=== PATIENT | female | born 1960 | race Caucasian/White ===

== ENCOUNTER → 2017-11-09 | Outpatient (CLI) | payer BC ==
--- NOTE | 2017-11-09 09:12 | BD ---
EXAMINATION TYPE: MG DEXA axial skeleton. DATE OF EXAM: 11/09/2017 COMPARISON: NONE CLINICAL HISTORY: Height: 112.2 Weight: 62.5 FRAX RISK QUESTIONS: Alcohol (3 or more units per day): no Family History (Parent hip fracture): no Glucocorticoids (More than 3mos): no (Ex: prednisone, prednisolone, methylprednisolone, dexamethasone, and hydrocortisone). History of Fracture in Adulthood: no Secondary Osteoporosis: 1. Type 1 Diabetes: no 2. Hyperthyroidism: no 3. Menopause before 45: no 4. Malnutrition: no 5. Chronic liver disease: no Rheumatoid Arthritis: no Current Tobacco Use: no RISK FACTORS HISTORY OF: Hip Fracture (Right/Left): When: Spine Fracture: When: History of Wrist Fracture: When: Surgery to Spine/Hip(right/left)/Wrist (right/left): no Family History of Osteoporosis: no Active: yes Diet low in dairy products/other sources of calcium: yes Postmenopausal woman: hysterectomy age53 Lost more than 2 inches in height since high school: no Frequent falls: no Poor Health: no Hyperparathyroidism: no Adrenal Insufficiency: no MEDICATIONS: none Additional History: EXAM MEASUREMENTS: Bone mineral densitometry was performed using the [employer] System. Bone mineral density as measured about the Lumbar spine is: ----- L1-L4(G/cm2): 0.910 T Score Values are as follows: ----- L2: -2.3 ----- L3: -2.2 ----- L4: -2.7 ----- L1-L4: -2.2 Bone mineral density baseline Bone mineral density about the R hip (g/cm2): 0.897 Bone mineral density about the L hip (g/cm2): 0.872 T Score values are as follows: -----R Neck: -1.0 -----L Neck: -1.2 -----R Total: -0.8 -----L Total: -1.1 Bone mineral density has baseline IMPRESSION: Osteopenia (T Score between -2.5 and -1 as noted by T score values overall within left hip and low ba ck. There is slightly increased risk of fracture and the patient may be considered for treatment. Re- Screen 2-5 years. NOTE: T-SCORE=SD OF THE YOUNG ADULT MEAN.
--- NOTE | 2017-11-10 09:46 | MM ---
Reason for exam: screening (asymptomatic). Last mammogram was performed 5 years and 9 months ago. History: Patient is postmenopausal. Family history of breast cancer in mother, breast cancer in paternal grandmother, and breast cancer in maternal grandmother. Benign excisional biopsy of the right breast, 1992. Physical Findings: A clinical breast exam by your physician is recommended on an annual basis and results should be correlated with mammographic findings. MG 3D Screening Mammo W/Cad Bilateral CC and MLO view(s) were taken. Prior study comparison: October 18, 2016, mammogram, performed at [facility]. October 27, 2015, mammogram, performed at [facility]. February 09, 2012, CAD bilateral diagnostic mammogram. April 09, 2010, bilateral digital screening mammogram. The breast tissue is heterogeneously dense. This may lower the sensitivity of mammography. There are stable right upper outer quadrant calcifications compared to multiple priors. No suspicious abnormality. No significant changes when compared with prior studies. ASSESSMENT: Benign, BI-RAD 2 RECOMMENDATION: Routine screening mammogram of both breasts in 1 year.
== END | disposition home or self-care (01) ==
LOC: RADMAMWWP 06:58
PROVIDERS: ATTEND Family Medicine
DX: M85.88 Other specified disorders of bone density and structure, other site (principal); M85.852 Other specified disorders of bone density and structure, left thigh; Z12.31 Encounter for screening mammogram for malignant neoplasm of breast
CPT/HCPCS: 77063; 77067; 77080

== ENCOUNTER → 2018-10-09 | Outpatient (CLI) | payer BC ==
--- NOTE | 2018-10-09 16:13 | CT ---
EXAMINATION TYPE: CT abdomen pelvis w con DATE OF EXAM: 10/09/2018 COMPARISON: None INDICATION: Abdominal pain, right side DLP: 348 mGycm, Automated exposure control for dose reduction was used. CONTRAST: 100 mL of Isovue 300. Study performed with Oral Contrast TECHNIQUE: Axial images were obtained from above the diaphragm to the pubic rami in the axial plane a t 5 mm thick sections. Reconstructed images are reviewed on the computer in the coronal plane. FINDINGS: Limited CT sections are obtained the lung bases. The lung bases are clear. CT ABDOMEN: Liver: Normal Spleen: Few scattered calcified granuloma may be within the spleen. Pancreas: Normal Adrenal glands: The adrenal glands are normal. Gallbladder: Normal Kidneys: No masses are evident. No hydronephrosis is present. No cysts are present. Delayed images were obtained through the kidneys, which remain unremarkable. Note is made of duplication of the rig ht renal collecting system. Dual ureters are identified to the pelvic inlet. This extends out of the [id number] and the distal evaluation of duplication cannot be performed at this time. Aorta: Normal Inferior vena cava: Normal. CT PELVIS: Loops of bowel within the abdomen and pelvis are normal. There are loops of bowel which are incom pletely distended or lack oral contrast limiting their evaluation. Fecal debris is within the colon. Appendix: Normal as visualized. Urinary bladder: Normal. Genitourinary structures: Uterus and adnexa are unremarkable. Osseous structures: No suspicious lytic or sclerotic lesions. IMPRESSIONS: 1. Duplication of the right renal collecting system. Dual ureters are identified to at least the pel nkechi inlet. 2. No suspicious acute changes to account for right abdomen pain.
== END | disposition home or self-care (01) ==
LOC: RADCTMAIN 10:38
PROVIDERS: ATTEND Family Medicine
DX: Q62.5 Duplication of ureter (principal); R10.9 Unspecified abdominal pain
CPT/HCPCS: 74177; Q9967

== ENCOUNTER → 2018-11-15 | Outpatient (CLI) | payer BC ==
--- NOTE | 2018-11-29 14:17 | MM ---
Reason for exam: screening (asymptomatic). Last mammogram was performed 1 year ago. History: Patient is postmenopausal. Family history of breast cancer in mother, breast cancer in paternal grandmother, and breast cancer in maternal grandmother. Benign excisional biopsy of the right breast, 1992. MG 3D Screening Mammo W/Cad Bilateral CC and MLO view(s) were taken. Prior study comparison: November 09, 2017, bilateral MG 3d screening mammo w/cad. October 18, 2016, mammogram, performed at [facility]. The breast tissue is heterogeneously dense. This may lower the sensitivity of mammography. No significant changes when compared with prior studies. ASSESSMENT: Benign, BI-RAD 2 RECOMMENDATION: Routine screening mammogram of both breasts in 1 year.
== END ==
LOC: RADMAMWWP 09:14
PROVIDERS: ATTEND Family Medicine
DX: Z12.31 Encounter for screening mammogram for malignant neoplasm of breast (principal)
CPT/HCPCS: 77063; 77067

== ENCOUNTER 2019-05-29 14:50 | Emergency (ER) | payer BC ==
[2019-05-29 15:01] VITALS: TEMP 97.1
[2019-05-29] MEDS ORDERED: SODIUM CHLORIDE 0.9% 1,000 ML IV STA (15:06)
[2019-05-29] MEDS ORDERED: MORPHINE SULFATE 4 MG/ML SYRINGE IVP STA (15:22)
[2019-05-29] MEDS ORDERED: ONDANSETRON 4 MG/2 ML VIAL IVP STA (15:22)
--- NOTE | 2019-05-29 15:31 | ED ---
Abdominal Pain HPI - General Chief Complaint: Abdominal Pain Stated Complaint: rt flank pain Poss /stone Time Seen by Provider: 05/29/19 15:06 Source: patient, RN notes reviewed Mode of arrival: wheelchair Limitations: no limitations - History of Present Illness Initial Comments: This a 59-year-old female presents emergency Department chief complaint of severe right-sided flank pain. Patient is a sudden onset of pain. Patient states that it's unbearable nothing makes the pain feel better or worse she missed the continuous nausea vomiting. Patient was seen at PCPs office today urinalysis does show hematuria. Patient states that this elevated for possible kidney stone. Patient states that she has no history of stones. She denies any diarrhea, constipation, fever, chills, chest pain or shortness of breath. Patient was given Toradol IV PCP in which she states has helped somewhat she has continuation of pain. - Related Data Home Medications Medication Instructions Recorded Confirmed Cranberry Fruit Concentrate [Azo 250 mg PO DAILY PRN 05/29/19 05/29/19 Cranberry] L.acidoph,Paracasei, B.lactis 1 cap PO HS 05/29/19 05/29/19 [Probiotic] Previous Rx's Medication Instructions Recorded Hydrocodone/Acetaminophen [[place] 1 tab PO Q6HR PRN #12 tab 05/29/19 5-325] Ketorolac [Toradol] 10 mg PO Q8HR #15 tab 05/29/19 Ondansetron Odt [Zofran Odt] 4 mg PO Q8HR PRN #10 tab 05/29/19 Tamsulosin [Flomax] 0.4 mg PO DAILY #7 cap 05/29/19 Allergies Allergy/AdvReac Type Severity Reaction Status Date / Time ciprofloxacin [From Cipro] Allergy Unknown Verified 05/29/19 15:25 CALAMARI Allergy Unknown Uncoded 05/29/19 15:01 Review of Systems ROS Statement: Those systems with pertinent positive or pertinent negative responses have been documented in the HPI. ROS Other: All systems not noted in ROS Statement are negative. Past Medical History Past Medical History: No Reported History History of Any Multi-Drug Resistant Organisms: None Reported Past Surgical History: No Surgical Hx Reported Past Psychological History: No Psychological Hx Reported Smoking Status: Never smoker Past Alcohol Use History: None Reported Past Drug Use History: None Reported General Exam Limitations: no limitations General appearance: alert, in no apparent distress Head exam: Present: atraumatic, normocephalic, normal inspection Respiratory exam: Present: normal lung sounds bilaterally. Absent: respiratory distress, wheezes, rales, rhonchi, stridor Cardiovascular Exam: Present: regular rate, normal rhythm, normal heart sounds. Absent: systolic murmur, diastolic murmur, rubs, gallop, clicks GI/Abdominal exam: Present: soft, normal bowel sounds. Absent: distended, tenderness (No change in patient's reported pain with palpation), guarding, rebound, rigid Back exam: Absent: CVA tenderness (R), CVA tenderness (L) Skin exam: Present: warm, dry, intact, normal color. Absent: rash Course Vital Signs 05/29/19 14:56 Temperature 97.1 F L Pulse Rate 46 L Respiratory 18 Rate Blood Pressure 152/87 O2 Sat by Pulse 100 Oximetry Medical Decision Making - Medical Decision Making 59-year-old female presents emergency from for right flank pain. Patient had CT which shows evidence of 4 mm UVJ stone. Patient symptoms are improving. Patient had lab work, urinalysis which shows evidence of hematuria otherwise unremarkable. - Lab Data Result diagrams: 05/29/19 15:26 05/29/19 15:26 Lab Results 05/29/19 05/29/19 05/29/19 Range/Units 15:26 15:26 15:26 WBC 8.9 (3.8-10.6) k/uL RBC 5.05 (3.80-5.40) m/uL Hgb 15.2 (11.4-16.0) gm/dL Hct 45.8 (34.0-46.0) % MCV 90.8 (80.0-100.0) fL MCH 30.1 (25.0-35.0) pg MCHC 33.1 (31.0-37.0) g/dL RDW 13.0 (11.5-15.5) % Plt Count 193 (150-450) k/uL Neutrophils % 73 % Lymphocytes % 20 % Monocytes % 4 % Eosinophils % 1 % Basophils % 1 % Neutrophils # 6.5 (1.3-7.7) k/uL Lymphocytes # 1.8 (1.0-4.8) k/uL Monocytes # 0.4 (0-1.0) k/uL Eosinophils # 0.1 (0-0.7) k/uL Basophils # 0.1 (0-0.2) k/uL Sodium 140 (137-145) mmol/L Potassium 4.5 (3.5-5.1) mmol/L Chloride 103 (98-107) mmol/L Carbon Dioxide 28 (22-30) mmol/L Anion Gap 9 mmol/L BUN 29 H (7-17) mg/dL Creatinine 0.86 (0.52-1.04) mg/dL Est GFR (CKD-EPI)AfAm 87 (>60 ml/min/1.73 sqM) Est GFR (CKD-EPI)NonAf 76 (>60 ml/min/1.73 sqM) Glucose 120 H (74-99) mg/dL Calcium 9.4 (8.4-10.2) mg/dL Total Bilirubin 0.7 (0.2-1.3) mg/dL AST 37 H (14-36) U/L ALT 20 (9-52) U/L Alkaline Phosphatase 72 (38-126) U/L Total Protein 7.2 (6.3-8.2) g/dL Albumin 4.5 (3.5-5.0) g/dL Amylase 63 (30-110) U/L Lipase 259 (23-300) U/L Urine Color Light Yellow Urine Appearance Clear (Clear) Urine pH 7.5 (5.0-8.0) Ur Specific [place] 1.013 (1.001-1.035) Urine Protein Negative (Negative) Urine Glucose (UA) Negative (Negative) Urine Ketones Negative (Negative) Urine Blood Small H (Negative) Urine Nitrite Negative (Negative) Urine Bilirubin Negative (Negative) Urine Urobilinogen <2.0 (<2.0) mg/dL Ur Leukocyte Esterase Negative (Negative) Urine RBC 24 H (0-5) /hpf Urine WBC 2 (0-5) /hpf Ur Squamous Epith Cells 1 (0-4) /hpf Urine Mucus Rare H (None) /hpf Disposition Clinical Impression: Ureteral calculus Disposition: HOME SELF-CARE Condition: Stable Instructions (If sedation given, give patient instructions): Kidney Stones (ED) Additional Instructions: Please return to the Emergency Department if symptoms worsen or any other concerns. Prescriptions: Tamsulosin [Flomax] 0.4 mg PO DAILY #7 cap Hydrocodone/Acetaminophen [[place] 5-325] 1 tab PO Q6HR PRN #12 tab PRN Reason: Pain Ketorolac [Toradol] 10 mg PO Q8HR #15 tab Ondansetron Odt [Zofran Odt] 4 mg PO Q8HR PRN #10 tab PRN Reason: Nausea Is patient prescribed a controlled substance at d/c from ED?: Yes When asked, does pt state using other controlled substances?: No If prescribed controlled substance>3 days was MAPS reviewed?: Prescribed <3 Days If opioid is for acute pain is fill amount 7 days or less?: Yes If Rx opioid, was Start Talking consent form obtained?: Yes Referrals: Zeinab Griffin MD [Primary Care Provider] - 1-2 days Roosevelt Eisenberg MD [STAFF PHYSICIAN] - 1-2 days Time of Disposition: 16:09
[2019-05-29 15:36] LABS: Basophils # (A) 0.1 k/uL (0-0.2); Basophils % (A) 1 %; Eosinophils # (A) 0.1 k/uL (0-0.7); Eosinophils % (A) 1 %; HCT 45.8 % (34.0-46.0); HGB 15.2 gm/dL (11.4-16.0); Lymphocytes # (A) 1.8 k/uL (1.0-4.8); Lymphocytes % (A) 20 %; MCH 30.1 pg (25.0-35.0); MCHC 33.1 g/dL (31.0-37.0); MCV 90.8 fL (80.0-100.0); Mean Platelet Volume 7.1; Monocytes # (A) 0.4 k/uL (0-1.0); Monocytes % (A) 4 %; Neutrophils # (A) 6.5 k/uL (1.3-7.7); Neutrophils % (A) 73 %; Platelet Count 193 k/uL (150-450); RBC 5.05 m/uL (3.80-5.40); WBC 8.9 k/uL (3.8-10.6)
[2019-05-29 15:38] LABS: Appearance,Urine Clear (Clear); Bilirubin,Urine Negative (Negative); Blood,Urine Small (Negative); Color,Urine Light Yellow; Glucose,Urine (UA) Negative (Negative); Ketones,Urine Negative (Negative); Leukocyte Esterase,Urine Negative (Negative); Mucus,Urine Rare /hpf; Nitrite,Urine Negative (Negative); PH, Urine 7.5 (5.0-8.0); Protein,Urine Negative (Negative); RBC,Urine 24 /hpf (0-5); Specific Gravity,Urine 1.013 (1.001-1.035); Squamous Epithelial Cell,Urine 1 /hpf (0-4); Urobilinogen,Urine <2.0 mg/dL (<2.0); WBC,Urine 2 /hpf (0-5)
[2019-05-29 15:47] LABS: Albumin 4.5 g/dL (3.5-5.0); Calcium 9.4 mg/dL (8.4-10.2); Potassium 4.5 mmol/L (3.5-5.1); Total Bilirubin 0.7 mg/dL (0.2-1.3); Total Protein 7.2 g/dL (6.3-8.2)
--- NOTE | 2019-05-29 15:57 | CT ---
EXAMINATION TYPE: CT abdomen pelvis wo con DATE OF EXAM: 05/29/2019 COMPARISON: 10/09/2018 HISTORY: 59-year-old female Right flank pain, hematuria CT DLP: 284.2 mGycm. Automated exposure control for dose reduction was used. TECHNIQUE: Contiguous axial scanning of the abdomen and pelvis without IV contrast. Coronal and sagit bri reconstructions performed. FINDINGS: Heart normal size without pericardial effusion. Some mild dependent atelectasis posterior lung bases. No pleural effusion. Noncontrast appearance of the liver, gallbladder, adrenal glands, left kidney with extrarenal pelvis, and pancreas show no gross abnormality. Multiple calcified granulomas in the spleen. There is no dilated small bowel, free fluid, or free air . There is mild to moderate right-sided hydronephrosis and mild hydroureter with a 4 mm calculus at the right UVJ. We note that the patient's 10/09/2018 exam showing a duplex right renal collecting system. It is uncl ear where the 2 ureters join but both the upper and lower pole collecting system is dilated suggestin g that the obstruction is occurring at the point of a single ureter. Few scattered prominent fluid-filled small bowel loops measuring up to 2.6 cm particularly in the lef t lower quadrant can be seen with enteritis. However, this is of questionable clinical significance i n the absence of pain here. Bladder nondistended. Uterus is visualized. Unable to delineate the ovaries from adjacent nonopacifie d bowel loops. No abnormal fluid collection in the pelvis. Bones: Mild degenerative changes at the hips. No osseous destructive process. IMPRESSION: 1. Mild to moderate right-sided hydronephrosis secondary to a 4 mm obstructing right UVJ calculus. 2. Note that the patient's 10/09/2018 exam demonstrated a duplex right renal collecting system. Dila tation of both upper and lower pole moieties suggests that the 2 ureters have come together distally. 3. A few prominent fluid-filled small bowel loops in the left lower quadrant may be transient or cou ld represent enteritis. Clinically correlate.
[2019-05-29 16:55] VITALS: BP 131/80; PULSE 61; RESP 16
== END 2019-05-29 16:55 | disposition home or self-care (01) ==
LOC: EC 14:50
DX: N13.2 Hydronephrosis with renal and ureteral calculous obstruction (principal); Z88.1 Allergy status to other antibiotic agents; Z91.013 Allergy to seafood
CPT/HCPCS: 36415; 74176; 80053; 81001; 82150; 83690; 85025; 96361; 96374; 96375; 99284

== ENCOUNTER → 2019-11-18 | Outpatient (CLI) | payer BC ==
--- NOTE | 2019-11-18 10:57 | BD ---
EXAMINATION TYPE: Axial Bone Density DATE OF EXAM: 11/18/2019 COMPARISON: NONE CLINICAL HISTORY: Height: 64 Weight: 111.7 FRAX RISK QUESTIONS: Alcohol (3 or more units per day): no Family History (Parent hip fracture): no Glucocorticoids (More than 3mos): no (Ex: prednisone, prednisolone, methylprednisolone, dexamethasone, and hydrocortisone). History of Fracture in Adulthood: no Secondary Osteoporosis: 1. Type 1 Diabetes: no 2. Hyperthyroidism: no 3. Menopause before 45: no 4. Malnutrition: no 5. Chronic liver disease: no Rheumatoid Arthritis: no Current Tobacco Use: no RISK FACTORS HISTORY OF: Family History of Osteoporosis: no Active: yes Diet low in dairy products/other sources of calcium: no Postmenopausal woman: age 53 MEDICATIONS: Additional History: EXAM MEASUREMENTS: Bone mineral densitometry was performed using the [employer]. Bone mineral density as measured about the Lumbar spine is: ----- L1-L4(G/cm2): 0.924 T Score Values are as follows: ----- L2: -2.3 ----- L3: -2.0 ----- L4: -2.5 ----- L1-L4: -2.1 Bone mineral density has: increased 1.9 % since study of: 11.09.2017 Bone mineral density about the R hip (g/cm2): 0.880 Bone mineral density about the L hip (g/cm2): 0.830 T Score values are as follows: -----R Neck: -1.1 -----L Neck: -1.5 -----R Total: -1.0 -----L Total: -1.3 Bone mineral density has: decreased -2.3 % since study of: 11.09.2017 IMPRESSION: Osteopenia about the lumbar spine and left femur. NOTE: T-SCORE=SD OF THE YOUNG ADULT MEAN.
--- NOTE | 2019-11-19 08:51 | MM ---
Reason for exam: screening (asymptomatic). Last mammogram was performed 1 year ago. History: Patient is postmenopausal. Family history of breast cancer in mother, breast cancer in paternal grandmother, and breast cancer in maternal grandmother. Benign excisional biopsy of the right breast, 1992. Physical Findings: A clinical breast exam by your physician is recommended on an annual basis and results should be correlated with mammographic findings. MG 3D Screening Mammo W/Cad Bilateral CC and MLO view(s) were taken. Prior study comparison: November 15, 2018, bilateral MG 3d screening mammo w/cad. November 09, 2017, bilateral MG 3d screening mammo w/cad. The breast tissue is heterogeneously dense. This may lower the sensitivity of mammography. There are benign appearing round vascular calcifications bilaterally. There is no discrete abnormality. ASSESSMENT: Benign, BI-RAD 2 RECOMMENDATION: Routine screening mammogram of both breasts in 1 year.
== END | disposition home or self-care (01) ==
LOC: RADMAMWWP 08:26
PROVIDERS: ATTEND Obstetrics & Gynecology
DX: Z12.31 Encounter for screening mammogram for malignant neoplasm of breast (principal); Z13.820 Encounter for screening for osteoporosis; M85.852 Other specified disorders of bone density and structure, left thigh; M85.88 Other specified disorders of bone density and structure, other site
CPT/HCPCS: 77063; 77067; 77080

== ENCOUNTER → 2020-12-01 | Outpatient (CLI) | payer BC ==
--- NOTE | 2020-12-02 10:40 | MM ---
Reason for exam: screening (asymptomatic). Last mammogram was performed 1 year ago. History: Patient is postmenopausal. Family history of breast cancer in mother, breast cancer in paternal grandmother, and breast cancer in maternal grandmother. Benign excisional biopsy of the right breast, 1992. Took hormonal contraceptives for 1 month. Taking estrogen for 1 year. Taking progesterone for 1 year. Physical Findings: A clinical breast exam by your physician is recommended on an annual basis and results should be correlated with mammographic findings. MG 3D Screening Mammo W/Cad Bilateral CC and MLO view(s) were taken. Prior study comparison: November 18, 2019, bilateral MG 3d screening mammo w/cad. November 15, 2018, bilateral MG 3d screening mammo w/cad. The breast tissue is heterogeneously dense. This may lower the sensitivity of mammography. Stable benign calcifications right breast. There is no discrete abnormality. ASSESSMENT: Benign, BI-RAD 2 RECOMMENDATION: Routine screening mammogram of both breasts in 1 year.
== END | disposition home or self-care (01) ==
LOC: RADMAMWWP 07:42
PROVIDERS: ATTEND Obstetrics & Gynecology
DX: Z12.31 Encounter for screening mammogram for malignant neoplasm of breast (principal); Z80.3 Family history of malignant neoplasm of breast
CPT/HCPCS: 77063; 77067

== ENCOUNTER → 2022-02-17 | Outpatient (CLI) | payer BC ==
--- NOTE | 2022-02-18 12:41 | MM ---
Reason for exam: screening (asymptomatic). Last mammogram was performed 1 year and 3 months ago. History: Patient is postmenopausal. Family history of breast cancer in mother, breast cancer in paternal grandmother, and breast cancer in maternal grandmother. Benign excisional biopsy of the right breast, 1992. Took hormonal contraceptives for 1 month. Taking estrogen for 1 year. Taking progesterone for 1 year. Physical Findings: A clinical breast exam by your physician is recommended on an annual basis and results should be correlated with mammographic findings. MG 3D Screening Mammo W/Cad Bilateral CC and MLO view(s) were taken. Prior study comparison: December 01, 2020, bilateral MG 3d screening mammo w/cad. November 18, 2019, bilateral MG 3d screening mammo w/cad. The breast tissue is heterogeneously dense. This may lower the sensitivity of mammography. No significant changes when compared with prior studies. ASSESSMENT: Benign, BI-RAD 2 RECOMMENDATION: Routine screening mammogram of both breasts in 1 year.
== END | disposition home or self-care (01) ==
LOC: RADMAMWWP 08:06
PROVIDERS: ATTEND Family Medicine
DX: Z12.31 Encounter for screening mammogram for malignant neoplasm of breast (principal); Z78.0 Asymptomatic menopausal state; Z80.3 Family history of malignant neoplasm of breast
CPT/HCPCS: 77063; 77067

== ENCOUNTER → 2023-02-20 | Outpatient (CLI) | payer BC ==
--- NOTE | 2023-02-20 11:40 | BD ---
EXAMINATION TYPE: Axial Bone Density DATE OF EXAM: 02/20/2023 CLINICAL HISTORY: 63 years old Female. ICD-10 CODE: N95.1 menopausal state, M89.9 disorder of bone Comparison: Prior DEXA bone scan November 18, 2019 Height: 62.5 Weight: 112.3 FRAX RISK QUESTIONS: Alcohol (3 or more units per day): no Family History (Parent hip fracture): no Glucocorticoids (More than 3mos): no). History of Fracture in Adulthood: no Secondary Osteoporosis: 1. Type 1 Diabetes: no 2. Hyperthyroidism: no 3. Menopause before 45: no 4. Malnutrition: no 5. Chronic liver disease: no Rheumatoid Arthritis: no Current Tobacco Use: no RISK FACTORS HISTORY OF: Hip Fracture (Right/Left): no Spine Fracture: no History of Wrist Fracture: no Surgery to Spine/Hip(right/left)/Wrist (right/left): no Family History of Osteoporosis: no Active: yes Diet low in dairy products/other sources of calcium: no Postmenopausal woman: yes Take estrogen and/or progesterone medications: Estrogen, Progesterone, [employer] Thyroid How long: past 3 years Lost more than 2 inches in height since high school: no Frequent falls: no Poor Health: no Hyperparathyroidism: no Adrenal Insufficiency: no MEDICATIONS: Prednisone or other steroids: no Thyroid Medications: [employer] Thyroid How Long: past 3 years Osteoporosis Medications: no Additional Medications: Multi Vit., Tri K, Vit D, Biotin Additional History: EXAM MEASUREMENTS: Bone mineral densitometry was performed using the [employer] System. Bone mineral density as measured about the Lumbar spine is: ----- L1-L4(G/cm2): 0.972 T Score Values are as follows: ----- L1: -1.4 ----- L2: -1.9 ----- L3: -1.4 ----- L4: -2.2 ----- L1-L4: -1.7 Z Score Values are as follows: ----- L1: 0.3 ----- L2: -0.2 ----- L3: 0.3 ----- L4: -0.5 ----- L1-L4: 0.0 Bone mineral density has: increased 5.2 % since study of: 11/18/2019 Bone mineral density about the R hip (g/cm2): 0.898 Bone mineral density about the L hip (g/cm2): 0.860 T Score values are as follows: -----R Neck: -1.0 -----L Neck: -1.3 -----R Total: -0.9 -----L Total: -1.2 Z Score values are as follows: -----R Neck: 0.6 -----L Neck: 0.3 -----R Total: 0.4 -----L Total: 0.1 Bone mineral density has: increases 1.6 % since study of: 11/18/2019 FRAX%s: The graph provided illustrates a 6..8% chance for a major osteoporotic fx and a 0.6% chance f or the hips probability for fx in 10 years time. IMPRESSION: Osteopenia (T Score between -2.5 and -1) remains present. There remains slightly increased risk of fracture and the patient may be considered for treatment. Re-Screen 2-5 years. NOTE: T-SCORE=SD OF THE YOUNG ADULT MEAN.
--- NOTE | 2023-02-21 07:30 | MM ---
Reason for Exam: Screening (asymptomatic). Last screening mammogram was performed 12 month(s) ago. Patient History: Menarche at age 16. First Full-Term at age 30. Postmenopausal. Patient has history of breast feeding. Currently using Estrogen, for 1 year. Currently using Progesterone, for 1 year. Hormonal Contraceptives for 1 month. 1992, Benign Excisional Biopsy on the right side. Paternal grandmother had breast cancer. Maternal grandmother had breast cancer. Mother had breast cancer. Risk Values: [place] 5 year model risk: 3.1%. NCI Lifetime model risk: 14.5%. Prior Study Comparison: 11/18/2019 Bilateral Screening Mammogram, [facility]. 12/01/2020 Bilateral Screening Mammogram, [facility]. 02/17/2022 Bilateral Screening Mammogram, [facility]. Tissue Density: The breast tissue is heterogeneously dense. This may lower the sensitivity of mammography. Findings: Analyzed By CAD. There is no suspicious group of microcalcifications or new suspicious mass in either breast. Overall Assessment: Negative, BI-RAD 1 Management: Screening Mammogram of both breasts in 1 year. A clinical breast exam by your physician is recommended on an annual basis and results should be correlated with mammographic findings. Electronically signed and approved by: Hai Coffman M.D. Radiologis
== END | disposition home or self-care (01) ==
LOC: RADMAMWWP 08:12
PROVIDERS: ATTEND Family Medicine
DX: Z12.31 Encounter for screening mammogram for malignant neoplasm of breast (principal); M85.89 Other specified disorders of bone density and structure, multiple sites; N95.1 Menopausal and female climacteric states; Z80.3 Family history of malignant neoplasm of breast
CPT/HCPCS: 77063; 77067; 77080

== ENCOUNTER → 2024-02-05 | Outpatient (CLI) | payer BC ==
--- NOTE | 2024-02-05 08:45 | USB ---
Reason for Exam: Clinical finding. Indicated Problems: Lump or thickening of the left side. Patient History: Menarche at age 16. First Full-Term at age 30. Postmenopausal. Patient has history of breast feeding. Currently using Estrogen, for 1 year. Currently using Progesterone, for 1 year. Hormonal Contraceptives for 1 month. 1993, Benign Excisional Biopsy on the right side. Paternal grandmother had breast cancer. Maternal grandmother had breast cancer. Mother had breast cancer. Risk Values: Lakeshia 5 year model risk: 3.2%. NCI Lifetime model risk: 14.1%. Technique: Method: Whole Breast Handheld. Doppler: Color. Patient Position: Supine. Prior Study Comparison: 02/09/2012 Left Diagnostic Ultrasound, [facility]. 12/01/2020 Bilateral Screening Mammogram, [facility]. 02/17/2022 Bilateral Screening Mammogram, [facility]. 02/20/2023 Bilateral MG 3D screening mammo w/cad, [facility]. Findings: The whole breast of the left breast, the axilla of the left breast and the retroareolar of the left breast were scanned. No solid masses are identified. There are scattered cysts noted throughout the left breast measuring subcentimeter in size. Mildly prominent ducts are seen within the retroareolar region. Manage clinically. Overall Assessment: Benign, BI-RAD 2 Management: Screening Mammogram of both breasts in 1 year. A clinical breast exam by your physician is recommended on an annual basis and results should be correlated with mammographic findings. This exam should not preclude additional follow-up of suspicious palpable abnormalities. Results were given to the patient verbally at the time of exam. Electronically signed and approved by: Hai Coffman M.D. Radiologis
--- NOTE | 2024-02-05 09:43 | MM ---
Reason for Exam: Clinical finding. Last screening mammogram was performed 12 month(s) ago. Patient History: Menarche at age 16. First Full-Term at age 30. Postmenopausal. Patient has history of breast feeding. Currently using Estrogen, for 1 year. Currently using Progesterone, for 1 year. Hormonal Contraceptives for 1 month. 1992, Benign Excisional Biopsy on the right side. Paternal grandmother had breast cancer. Maternal grandmother had breast cancer. Mother had breast cancer. Risk Values: Lakeshia 5 year model risk: 3.2%. NCI Lifetime model risk: 14.1%. Prior Study Comparison: 12/01/2020 Bilateral Screening Mammogram, [facility]. 02/17/2022 Bilateral Screening Mammogram, [facility]. 02/20/2023 Bilateral MG 3D screening mammo w/cad, [facility]. Tissue Density: The breasts are extremely dense, which lowers the sensitivity of mammography. Findings: No mass or distortion seen. No suspicious calcifications. Manage clinically. Overall Assessment: Incomplete: need additional imaging evaluation, BI-RAD 0 Management: Diagnostic Breast Ultrasound of the left breast. . Results were given to the patient verbally at the time of exam. Patient should continue monthly self-breast exams. A clinical breast exam by your physician is recommended on an annual basis. This exam should not preclude additional follow-up of suspicious palpable abnormalities. Note on Lakeshia scores and lifetime risk: 1. A Lakeshia score greater than 3% is considered moderate risk. If this is the case, consider specialist referral to assess eligibility for a risk reducing agent. 2. If overall lifetime risk for the development of breast cancer is 20% or higher, the patient may qualify for future screening with alternating mammogram and breast MRI. Electronically signed and approved by: Hai Coffman M.D. Radiologis
== END | disposition home or self-care (01) ==
LOC: RADMAMWWP 07:28
PROVIDERS: ATTEND Family Medicine
DX: N60.12 Diffuse cystic mastopathy of left breast (principal); R92.343 Mammographic extreme density, bilateral breasts; Z80.3 Family history of malignant neoplasm of breast; Z78.0 Asymptomatic menopausal state
CPT/HCPCS: 77062; 77066

== ENCOUNTER → 2025-02-21 | Outpatient (CLI) | payer BC ==
--- NOTE | 2025-02-21 07:34 | MM ---
Reason for Exam: Screening (asymptomatic). Last screening mammogram was performed 12 month(s) ago. Patient History: Menarche at age 16. First Full-Term at age 30. Postmenopausal. Patient has history of breast feeding. Currently using Estrogen, for 1 year. Currently using Progesterone, for 1 year. Hormonal Contraceptives for 1 month. 1992, Benign Excisional Biopsy on the right side. Paternal grandmother had breast cancer. Maternal grandmother had breast cancer. Mother had breast cancer. Risk Values: Lakeshia 5 year model risk: 3.3%. NCI Lifetime model risk: 13.7%. Prior Study Comparison: 02/17/2022 Bilateral Screening Mammogram, [facility]. 02/20/2023 Bilateral MG 3D screening mammo w/cad, [facility]. 02/05/2024 Bilateral MG 3D diag mammo w/cad SHERI, [facility]. Tissue Density: The breasts are extremely dense, which lowers the sensitivity of mammography. Findings: Analyzed By CAD. There is no suspicious group of microcalcifications or new suspicious mass in either breast. Overall Assessment: Benign, BI-RAD 2 Management: Screening Mammogram of both breasts in 1 year. . Patient should continue monthly self-breast exams. A clinical breast exam by your physician is recommended on an annual basis. This exam should not preclude additional follow-up of suspicious palpable abnormalities. Note on Lakeshia scores and lifetime risk: 1. A Laksehia score greater than 3% is considered moderate risk. If this is the case, consider specialist referral to assess eligibility for a risk reducing agent. 2. If overall lifetime risk for the development of breast cancer is 20% or higher, the patient may qualify for future screening with alternating mammogram and breast MRI. [facility], , 02/21/2025 7:31 AM. Electronically signed and approved by: Hai Coffman M.D. Radiologis
--- NOTE | 2025-02-21 10:17 | BD ---
EXAMINATION TYPE: Axial Bone Density DATE OF EXAM: 02/21/2025 CLINICAL HISTORY: 65 years old Female. ICD-10 CODE: M85.9 DISOER OF BONE DENSITY , Additional Histor y: Height: 62.5 Weight: 110.6 FRAX RISK QUESTIONS: Alcohol (3 or more units per day): no Family History (Parent hip fracture): no Glucocorticoids (More than 3mos): no (Ex: prednisone, prednisolone, methylprednisolone, dexamethasone, and hydrocortisone). History of Fracture in Adulthood: no Secondary Osteoporosis: 1. Type 1 Diabetes: no 2. Hyperthyroidism: yes 3. Menopause before 45: no 4. Malnutrition: no 5. Chronic liver disease: no Rheumatoid Arthritis: no Current Tobacco Use: no RISK FACTORS HISTORY OF: Hip Fracture (Right/Left): no Spine Fracture: no History of Wrist Fracture: no Surgery to Spine/Hip(right/left)/Wrist (right/left): no MEDICATIONS: Thyroid Medications: [employer] Thyroid How Lon Osteoporosis Medications: no EXAM MEASUREMENTS: Bone mineral densitometry was performed using the [employer] System. Bone mineral density as measured about the Lumbar spine is: ----- L1-L4(G/cm2): 0.976 T Score Values are as follows: ----- L1: -1.5 ----- L2: -1.9 ----- L3: -1.5 ----- L4: -1.9 ----- L1-L4: -1.7 Z Score Values are as follows: ----- L1: 0.4 ----- L2: 0.0 ----- L3: 0.4 ----- L4: 0.0 ----- L1-L4: 0.2 Bone mineral density has: increased 0.4 % since study of: 02/20/2023 Bone mineral density about the R hip (g/cm2): 0.899 Bone mineral density about the L hip (g/cm2): 0.860 T Score values are as follows: -----R Neck: -0.9 -----L Neck: -1.3 -----R Total: -0.9 -----L Total: -1.2 Z Score values are as follows: -----R Neck: 0.8 -----L Neck: 0.4 -----R Total: 0.6 -----L Total: 0.3 Bone mineral density has: increased 0.1 % since study of: 02/20/2023 FRAX%s: The graph provided illustrates a 7.1% chance for a major osteoporotic fx and a 0.6% chance fo r the hips probability for fx in 10 years time. IMPRESSION: Osteopenia (T Score between -2.5 and -1). There is slightly increased risk of fracture and the patient may be considered for treatment. Re-Screen 2-5 years. NOTE: T-SCORE=SD OF THE YOUNG ADULT MEAN. [facility], , 02/21/2025 10:14 AM
== END | disposition home or self-care (01) ==
LOC: RADMAMWWP 06:59
PROVIDERS: ATTEND Family Medicine
DX: Z12.31 Encounter for screening mammogram for malignant neoplasm of breast (principal); R92.343 Mammographic extreme density, bilateral breasts; M85.89 Other specified disorders of bone density and structure, multiple sites; Z78.0 Asymptomatic menopausal state; Z92.0 Personal history of contraception; Z80.3 Family history of malignant neoplasm of breast
CPT/HCPCS: 77063; 77067; 77080